=== PATIENT | female | born 1970 | race Caucasian/White ===

== ENCOUNTER → 2021-01-07 15:12 | Outpatient (CLI) | payer BC, SELFPAY ==
--- NOTE | 2021-01-07 15:19 | DI.RAD.S_ITS ---
PROCEDURE: XR KNEE RT 4V INDICATIONS: RT KNEE PAIN TECHNIQUE: 4 views of the knee were acquired. COMPARISON: None. FINDINGS: Bones: No fractures or dislocations. No suspicious bony lesions. A fabella is seen. A superior patellar enthesophyte is noted. Soft tissues: Moderate suprapatellar joint effusion. No suspicious soft tissue calcifications. IMPRESSION: 1. No acute osseous abnormality. 2. Moderate suprapatellar joint effusion. Dictated by: Ross Franks M.D. on 01/07/2021 at 16:01 Approved by: Ross Franks M.D. on 01/07/2021 at 16:02
== END ==
PROVIDERS: PCP Surgery Vascular Surgery; Referring Provider Surgery Vascular Surgery; Visit Provider Surgery Vascular Surgery
DX: M25.561 Pain in right knee (principal); M25.461 Effusion, right knee
CPT/HCPCS: 73564